=== PATIENT | female | born 1990 | race Caucasian/White ===

== ENCOUNTER → 2017-08-15 19:12 | Outpatient (CLI) | payer OTHER, SELFPAY ==
[2017-08-15 21:16] LABS: Group B Strep DNA By PCR Negative (Negative); Internal Control PASS; Probe Check PASS; Specimen Processing Control PASS
== END ==
PROVIDERS: Obstetrics & Gynecology; Visit Provider Obstetrics & Gynecology
DX: Z36.85 Encounter for antenatal screening for Streptococcus B (principal)
CPT/HCPCS: 87081; 87653

== ENCOUNTER 2017-09-12 14:00 | Inpatient (IN) | payer SELFPAY ==
[2017-09-12] MEDS: Lactated Ringers 1,000 ML 50 ML IV (15:00)
[2017-09-12 15:15] LABS: Hematocrit 35.8 % (37-47); Hemoglobin 11.6 g/dl (12.0-15.0); Mean Corp Hgb Conc 32.4 g/gl (32-36); Mean Corpuscular Hgb 31.8 pg (27.0-32.0); Mean Corpuscular Volume 98.1 fL (81-99); Mean Platelet Vol. 11.5 fl (6.2-12.0); Platelet Count 172 K/mm3 (150-450); RBC Distribution Width CV 13.8 % (11.6-14.6); RBC Distribution Width SD 47.1 fl (35.1-43.9); Red Blood Count 3.65 M/mm3 (4.2-5.4); White Blood Count 14.5 K/mm3 (4.4-11.0)
[2017-09-12 15:29] LABS: Scan Indicated on CBC? Y/N NO
[2017-09-12] MEDS: Oxytocin 30 units/NS 500 ml 30 UNITS/500 ML IV.SOLN 334 UNITS IV (15:36)
[2017-09-12 15:45] VITALS: BMI 27.2
[2017-09-12] MEDS: Oxytocin 30 units/NS 500 ml 30 UNITS/500 ML IV.SOLN 167 UNITS IV (16:06)
[2017-09-12] MEDS: Methylergonovine 0.2 MG/ML Ampul IM (16:20)
[2017-09-12] MEDS: Ibuprofen 600 MG Tablet PO (17:37)
--- NOTE | 2017-09-12 18:00 | PCM.OB.VAG ---
Vaginal Delivery Maternal Presentation: Active Labor Amniotic Membrane Rupture Type: Artificial Amniotic Fluid Description: Clear Final RAYMUNDO: 09/10/17 Final RAYMUNDO Source: US <20 weeks Gestational age: 40 Weeks and 2 Days Date of Procedure: 09/12/17 Pre-Operative Diagnosis: IUP Post-Operative Diagnosis: IUP Surgery/ Procedure Performed: Spontaneous Vaginal Delivery Type of Anesthesia: None, Local with 1% lidocaine Description of Procedure: Spontaneous vaginal delivery of a viable male infant with Apgars of 8/9 in occiput anterior presentation and clear amniotic fluid and normal three-vessel placenta. Cord around the neck ?1 loose. No episiotomy. First-degree midline laceration repaired in layers with 3-0 Rapide suture. Sponge counts okay. Delivery physician: Emeterio Osman MD. Presentation: Vertex Placental Delivery Description: Spontaneous Placenta Disposition: [facility] Cord Vessel Description: 3 Vessels Cord Entanglement: Around neck x 1, loose Estimated Blood Loss: 250 cc Infant A gender: Male (1 minute): 8 (5 minute): 9 Episiotomy Description: None Laceration: Midline, Perineal Extension/lac, 1st degree Medications given after delivery: IV Pitocin, IM Methergin Complications: None
--- NOTE | 2017-09-12 18:03 | PCM.DCVAG ---
Discharge Diet: No Restrictions Discharge Activity: May Shower, May Take a Tub Bath May resume sexual activity in: 4-6 weeks Additional Activity Instructions:: Nothing in the vagina for 4-6 weeks. You may return to work/school in 6 weeks. Call your doctor if you observe: Fever of 101 or Higher, Inability to urinate, Inability to have a bowel movement, Using more than one pad per hour Additional Instructions: If you experience any of the following, contact your healthcare provider. Bleeding that soaks a pad every hour for 2 hours Unrelieved incision or abdominal pain Swelling, redness, discharge or bleeding from your incision or episiotomy site Your incision begins to separate Problems urinating (including inability to urinate or burning while urinating). Visual changes Severe headache Flu-like symptoms Pain or redness in one of both of your breasts Pain, warmth, tenderness or swelling in your legs, especially the calf area Frequent nausea and vomiting Symptoms of depression or anxiety If you experience any of the following, call 911 or go to the nearest Emergency Room. Chest pain Problems breathing Seizure activity Partial or complete paralysis of a body part, slurred speech, weakness or drooping of the face, or a sudden inability to walk or hold your balance Allergies/Adverse Reactions: Allergies No Known Allergies Allergy (Verified 09/12/17 15:05) Medications to take at Discharge Vit No.130/Iron/FA [ Vitamins] 1 each PO DAILY 09/12/17 Please Follow Up With: Delmy Rocha MD - [phone] When: Call to make an appointment with your doctor in 6 weeks.
--- NOTE | 2017-09-12 18:05 | DCINST_ITS ---
Discharge Diet: No Restrictions Discharge Activity: May Shower, May Take a Tub Bath May resume sexual activity in: 4-6 weeks Additional Activity Instructions:: Nothing in the vagina for 4-6 weeks. You may return to work/school in 6 weeks. Call your doctor if you observe: Fever of 101 or Higher, Inability to urinate, Inability to have a bowel movement, Using more than one pad per hour Additional Instructions: If you experience any of the following, contact your healthcare provider. * Bleeding that soaks a pad every hour for 2 hours * Unrelieved incision or abdominal pain * Swelling, redness, discharge or bleeding from your incision or episiotomy site * Your incision begins to separate * Problems urinating (including inability to urinate or burning while urinating) . * Visual changes * Severe headache * Flu-like symptoms * Pain or redness in one of both of your breasts * Pain, warmth, tenderness or swelling in your legs, especially the calf area * Frequent nausea and vomiting * Symptoms of depression or anxiety If you experience any of the following, call 911 or go to the nearest Emergency Room. * Chest pain * Problems breathing * Seizure activity * Partial or complete paralysis of a body part, slurred speech, weakness or drooping of the face, or a sudden inability to walk or hold your balance Allergies/Adverse Reactions: Allergies No Known Allergies Allergy (Verified 09/12/17 15:05) Medications to take at Discharge Vit No.130/Iron/FA [ Vitamins] 1 each PO DAILY 09/12/17 Please Follow Up With: Delmy Rocha MD - [phone] When: Call to make an appointment with your doctor in 6 weeks.
[2017-09-12] MEDS: miSOPROStol 200 MCG Tablet PO (18:15)
[2017-09-12] MEDS: 0.9% Saline Lock 10 ML Syringe IV (19:06)
[2017-09-12 19:45] VITALS: BP 109/60; PULSE 88; RESP 16; TEMP 37.1; O2SAT 96
[2017-09-12 23:30] VITALS: BP 113/68; PULSE 88; RESP 18; TEMP 36.2; O2SAT 96
[2017-09-13] MEDS: Ibuprofen 600 MG Tablet PO ×3 (01:23→21:36)
[2017-09-13 04:22] VITALS: BP 105/59; PULSE 87; RESP 16; TEMP 35.9; O2SAT 97
[2017-09-13] MEDS: 0.9% Saline Lock 10 ML Syringe IV (04:22)
[2017-09-13] MEDS: oxyCODONE 5 MG Tablet PO (06:07)
[2017-09-13 08:50] VITALS: BP 109/59; PULSE 93; RESP 16; TEMP 36.2; O2SAT 96
--- NOTE | 2017-09-13 08:51 | PCM.PN.OB ---
Subjective: Patient without complaints. Breast-feeding going well. Wants to go home today. - Physical Exam Vital Signs AF, VSS Temp Pulse Resp BP Pulse Ox 96.7 F L 87 16 105/59 L 97 09/13/17 04:22 09/13/17 04:22 09/13/17 04:22 09/13/17 04:22 09/13/17 04:22 Oxygen Delivery Method Room Air Weight: 179 lb 3.773 oz Body Mass Index (BMI) 27.2 Intake and Output for Last 24 Hours 09/11/17 09/12/17 09/13/17 23:59 23:59 23:59 Output Total 1000 / 1000 Balance -1000 / -1000 Laboratory Tests Past 24 Hrs 09/12/17 09/12/17 15:05 18:55 WBC 14.5 H RBC 3.65 L Hgb 11.6 L Hct 35.8 L MCV 98.1 MCH 31.8 MCHC 32.4 RDW 13.8 RDW Differential 47.1 H Plt Count 172 MPV 11.5 Blood Type O NEGATIVE Antibody Screen NEGATIVE Assessment/Plan Doing well. Will release to home with routine instructions.
[2017-09-13 12:00] VITALS: BP 101/62; PULSE 74; RESP 16; TEMP 36.2; O2SAT 98
[2017-09-13 16:00] VITALS: BP 110/62; PULSE 83; RESP 16; TEMP 36.6; O2SAT 97
[2017-09-13 19:40] VITALS: BP 113/63; PULSE 82; RESP 16; TEMP 36.4; O2SAT 97
[2017-09-13] MEDS: Senna/Docusate Sodium 1 Tablet PO (21:44)
[2017-09-14 03:10] VITALS: BP 99/50; PULSE 75; RESP 16; TEMP 36.4; O2SAT 98
[2017-09-14] MEDS: Senna/Docusate Sodium 1 Tablet PO (08:26)
[2017-09-14] MEDS: Ibuprofen 600 MG Tablet PO (08:27)
[2017-09-14 08:30] VITALS: BP 108/52; PULSE 75; RESP 16; TEMP 36.6
--- NOTE | 2017-09-14 09:18 | PCM.PN.OB ---
Subjective: Patient without complaints. Minimal vaginal bleeding. Decided to stay yesterday but now ready to go home. - Physical Exam Vital Signs Temp Pulse Resp BP Pulse Ox 97.9 F 75 16 108/52 L 98 09/14/17 08:30 09/14/17 08:30 09/14/17 08:30 09/14/17 08:30 09/14/17 03:10 Oxygen Delivery Method Room Air Weight: 179 lb 3.773 oz Body Mass Index (BMI) 27.2 Intake and Output for Last 24 Hours 09/12/17 09/13/17 09/14/17 23:59 23:59 23:59 Output Total 1000 / 1000 Balance -1000 / -1000 Assessment/Plan Doing well. Will release to home with routine instructions.
== END 2017-09-14 13:20 | disposition home or self-care (01) | DRG 775 ==
PROVIDERS: Admitting Provider Obstetrics & Gynecology; Family Provider Family Medicine; PCP Family Medicine; Visit Provider Obstetrics & Gynecology
DX: O48.0 Post-term pregnancy (principal); O69.81X0 Labor and delivery complicated by cord around neck, without compression, not applicable or unspecified; Z3A.40 40 weeks gestation of pregnancy; O70.0 First degree perineal laceration during delivery; Z37.0 Single live birth
CPT/HCPCS: 59050; 85027; 86850; 86900; 93460; 99218; J7120; A4216; G0378

== ENCOUNTER → 2019-12-18 | Outpatient (CLI) | payer OTHER, SELFPAY ==
[2019-12-19 15:39] LABS: Chlamydia Trachomatis by PCR Negative (Negative); Neisserai gonorrhoeae by PCR Negative (Negative); Probe Check PASS; Sample Adequacy Control PASS; Specimen Processing Control PASS
[2019-12-24 14:58] LABS: HPV Reflexed? NOT INDICATED
== END | disposition home or self-care (01) ==
LOC: LABSPEC 12-19 09:46
PROVIDERS: PCP Family Medicine; Visit Provider Obstetrics & Gynecology
DX: Z12.4 Encounter for screening for malignant neoplasm of cervix (principal); Z11.3 Encounter for screening for infections with a predominantly sexual mode of transmission
CPT/HCPCS: 87491; 87591; 88175; G0145

== ENCOUNTER → 2020-04-10 09:43 | Outpatient (CLI) | payer OTHER, SELFPAY ==
[2020-04-10 11:15] LABS: Hematocrit 39.3 % (37-47); Hemoglobin 12.7 g/dL (12.0-15.0); Mean Corp Hgb Conc 32.3 g/dL (32-36); Mean Platelet Vol. 11.2 fl (6.2-12.0); Platelet Count 159 K/mm3 (150-450); RBC Distribution Width SD 47.1 fl (35.1-43.9); Red Blood Count 3.97 M/mm3 (4.2-5.4); White Blood Count 10.2 K/mm3 (4.4-11.0)
[2020-04-10 11:58] LABS: Glucose Challenge Gest 1H 50g 70 mg/dL (70-140)
== END ==
PROVIDERS: PCP Family Medicine; Visit Provider Obstetrics & Gynecology
DX: Z34.83 Encounter for supervision of other normal pregnancy, third trimester (principal)
CPT/HCPCS: 36415; 82950; 85027; 86850

== ENCOUNTER → 2020-06-03 09:50 | Outpatient (CLI) | payer OTHER, SELFPAY | PROVIDERS: PCP Family Medicine; Visit Provider Obstetrics & Gynecology | DX: Z36.85 Encounter for antenatal screening for Streptococcus B (principal) | CPT/HCPCS: 87081 ==

== ENCOUNTER 2020-07-07 00:47 | Inpatient (IN) | payer SELFPAY, OTHER ==
[2020-07-07] VITALS (19 sets, daily range): BP systolic 102–131; BP diastolic 52–86; PULSE 77–109; RESP 14–16; TEMP 36–36.6; O2SAT 97; BMI 29.2
[2020-07-07] MEDS: Lactated Ringers 1,000 ML 200 ML IV (01:01)
[2020-07-07 01:19] LABS: Absolute Lymphocyte Count 1.53 X10^3/uL (0.83-4.51); Absolute Neutrophil Count 6.9 X10^3/uL (2.0-7.7); Basophil# 0.03 X10^3/uL; Basophil% 0.3 % (0-1); Eosinophil# 0.11 X10^3/uL; Eosinophils% 1.2 % (0-5); Hematocrit 37.6 % (37-47); Hemoglobin 12.3 g/dL (12.0-15.0); Lymphocyte # 1.53 X10^3/ul (4.0); Lymphocyte % 16.3 % (19-41); Mean Corp Hgb Conc 32.7 g/dL (32-36); Mean Corpuscular Hgb 31.1 pg (27.0-32.0); Mean Corpuscular Volume 95.2 fL (81-99); Mean Platelet Vol. 12.1 fl (6.2-12.0); Monocyte# 0.77 X10^3/uL; Monocyte% 8.2 % (0-10); NRBC Flagged by Analyzer 0 % (0-5); Neutrophil # 6.87 X10^3/uL (2.7-7.7); Neutrophil % 73.5 % (47-70); Platelet Count 175 K/mm3 (150-450); RBC Distribution Width CV 13.6 % (11.6-14.6); RBC Distribution Width SD 46.9 fl (35.1-43.9); Red Blood Count 3.95 M/mm3 (4.2-5.4); White Blood Count 9.4 K/mm3 (4.4-11.0)
[2020-07-07] MEDS: Oxytocin 30 units/NS 500 ml 30 UNITS/500 ML IV.SOLN 334 UNITS IV (03:04)
--- NOTE | 2020-07-07 03:11 | PCM.HP.BLA ---
History and Physical Date of Admission: 07/07/20 OG ANTEPARTUM RECORD - HISTORY AND PHYSICAL (07/07/2020) Name: SHAUNA LOBATO History of This : This is a 30-year-old Ab2 who presents in active labor at 41 weeks gestation. care has otherwise been uneventful. OB Physician: SID 's Physician: Raphael Cornejo [facility] ...................................................................... : 1990 Age: 30 Address: [address] [place] [address] Phone: [phone] Insurance Carrier: [facility] [id number] Emergency Contact: TAWANA LOBATO [phone] ...................................................................... Final RAYMUNDO: 06/30/20 By Ultrasound: 11 weeks 2 days PARITY: (G-Total Pregnancies P-Fullterm,Premature,Induced AB,Spont AB, Ectopics, Multiple,Living) RAYMUNDO CONFIRMATION: By LMP: 09/24/19 By First Ultrasound Exam: 06/27/20 Final RAYMUNDO: 06/30/20 OB PROBLEM LIST: 's sister has PKU. NOT on Genetics Screening form. EPDS 6. Declines AFP and CF. O negative RhoGAM at 28-29 wks ALLERGIES: No Known Drug Allergies MEDICATIONS: Colace 100 mg capsule One to two pill by mouth once a day 28 mg iron-800 mcg tablet daily SOCIAL HISTORY: Smoking - Never Alcohol Use - occasionally not while and wine not while Diet - balanced Diet, caffeine < 2 drinks per day and Water tries for 2-3 40 oz daily. Lifestyle - Exercise - active work, walking and tries to walk 30 min most days. 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 Drug Use - denies use of street drugs Sexual Activity - Residence - owns a home and lives w husb and daughter Place of - [place] Spouse-Sig Other Name - Tawana Spouse-Sig Other Occupation - Gang Hemstitching Machine Operator Spouse-Sig Other Phone No - [phone] Children Name(s) - Antoni Hammer PRIOR DELIVERY HISTORY DEL DATE GEST LAB WT LB WT OZ TYPE ANES LABOR TX November 16 10 0 0 0 Vag None No May 16 9 0 0 0 Vag None No Sep 18 40 12 7 9 Vag Local No November 14 40 12 7 8 Vag None No ANTEPARTUM FLOW CHART VISIT GE RTC FU F F SC U U DATE WK MD WKS HT PN HR M SS BP ED WT SC GL D EF ST __ ____ ___ __ __ ___ __ __ __ ___ __ __ __ ___ __ 29 Jun JMW 1 37 + + 116/66 sl 192 1+ - 3 75 -2 Jun JMW 1 38 V + + 132/86 sl 192 tr - S 15 Jun JM 1 38 V + + 122/68 sl 191 tr - 2 50 -3 08 Jun JMW 36 27 + + 118/70 sl 190 tr - 2 50 P 01 Jun JMW 1 36 V + + 116/64 sl 189 tr - ft 50 -2 May JMW 3 32 + + 104/70 sl 185 - - Apr 30 JMW 3 28 + + 110/70 sl 183 tr - 08 Mar 27 JMW 4 24 + + 102/68 tr 170 - - Feb 20 JMW 4 20 + + 116/72 sl 166 - - Jan 16 JMW 4 16 + O 112/60 0 155 - - ANTEPARTUM NOTE(S): Jul 01 2020: Doing Well Jun 24 2020: Ctxs-occas, Good FM Jun 17 2020: Ctxs-occas and Doing Well Jun 10 2020: Questionable Pelvic Gridle pain,Good FM Jun 03 2020: Doing Well, GBS today, LARC declined May 06 2020: doing well, COVID x 3 wks ago Apr 10 2020: feeling well. Glucola drawn and rhogam given. AM Mar 11 2020: Glucola/Instructions Given,Good FM Feb 12 2020: Sono Today,Occ Cxts(encouraged to increase water) Jan 15 2020: Declines AFP COMPREHENSIVE ANTEPARTUM NOTE(S): Jun 17 2020: 38wk, no complaints. Desires expectant management. Possible membrane sweep next visit. Jun 12 2020: H taken to OB. tkg Jan 15 2020: Shauna declines genetics testing. She has not felt FM yet. Episode of dizziness this morning, wondering if vertigo, which she has had in the past. To watch -- to follow w/PCP if needed. Reviewed increase in blood volume in -- avoid sudden position changes, prolonged standing, maintain hydration. NOB educational materials given. 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 The first baby was tachypneic and transferred to [facility] for a few days. was difficult so she pumped. Their son nursed well for ten months. Her ,Tawana, is a excavation laborer. They have a 6 yo daughter and a 2 yo son. They are pleased about the . Shauna has NKA to drugs, food, latex or the environment. Her diet is balanced w < 2 servings of caffeine daily and a 40 oz water bottle filled at least twice daily and three if she can. She is a lifetime non smoker. When not pg she occ has wine. She denies street drug use. Genetics Screening form completed prior noting an uncle with MR, developmental disability. During this call she mentioned her 's sister has PKU. They decline AFP and CF testing. EPDS score 6. Warning signs in pg reviewed as well as wearing seatbelt ALWAYS despite location in vehicle and low on her abdomen, reaching the office after hours, OTC meds ok to take w understanding voiced. They have an outdoor cat only. Shauna had chickenpox. US and labs done prior. She has a copy of What to Expect. Enc to call w any concerns or questions they may have. Visit took 30 minutes. Alhaji VALDEZ. NEW Dec 18 2019: Shauna presents here today for Missed Menses appointment. 29 y.o. G 5 P 2 non-smoker with regular menses and LMP of 09-24-19 lasting her average of 5 days. UPT is positive today in our Office. Denies spotting/bleeding thus far in . Reports periodic nausea and tender breasts. Presents at 12 weeks today and will plan to have labs drawn at this visit. History of normal pap screening in 2017. Medication and Allergy lists up-dated. Currently taking an OTC Vitamin and Colace stool softener for constipation. Genetic screening form filled out, [place] Depression Scale form filled out, in preparation for Telehealth NOB visit in near future. ALEJO Dec 17 2020: ok REVIEW OF SYSTEMS: GENERAL - Denies fever, or chills SKIN - Denies rash, new skin lesions, or change in moles EYES - Denies blurred vision, or change in visual acuity EARS - Denies ear pain, or difficulty hearing NOSE - Denies nasal congestion, discharge, or bleeding MOUTH - Denies sore throat, or difficulty swallowing NECK - Denies pain or swelling RESPIRATORY - Denies shortness of breath, cough, wheezing CARDIOVASCULAR - Denies palpitations, chest pain, orthopnea, PND, peripheral edema, syncope or claudication GASTROINTESTINAL - Denies nausea, vomiting, diarrhea, constipation, Denies abdominal pain, melena and or bright red blood GENITOURINARY - Denies dysuria, frequency of urination, urgency, or hesitancy MUSCULOSKELETAL - Denies joint or muscle pain, or back pain NEUROLOGICAL - Denies localized numbness, weakness, or tingling PSYCHIATRIC - Denies depression, anxiety, substance abuse or suicide attempts ENDOCRINE - Denies heat or cold intolerance, weight loss or gain, increasing thirst HEMATO-IMMUNOLOGIC - Denies easy bruising, bleeding, oral ulcerations or recurrent infections GENETICS SCREENING: Age 35+ years: No Thalassemia: No Neural Tube Defect: No Down Syndrome: No DEBRA-SACHS: No Sickle Cell Disease: No Hemophilia: No Musc. Dystrophy: No Cystic Fibrosis: No-declines screening Fannin Chorea: No Mental Retardation: Yes Fragile X: No Other genetic: No Other defects: No SABs/still births: Yes x2 Drugs since LMP: Yes Comments: Colace INFECTION HISTORY: High risk AIDS: No High risk Hepatitis: No Exposed to TB: No Exposed to Herpes: No Rash/viral illness since LMP: No History of STD: No MENSTRUAL HISTORY: *Menses Amount/Duration: 5 daysMenses Regularity: RegularFrequency: monthlyMenarche (Age Onset): 15* PAST SUMMARY: PARITY: 1. Total Pregnancies............ 5 2. Full Term Pregnancies........ 2 3. Premature.................... 0 4. Abortions - Induced.......... 0 5. Abortions - Spontaneous...... 2 6. Ectopics..................... 0 7. Multiple Births.............. 0 8. Living Children.............. 2 PAST #1: Date of :.................. 11/20/13 Gestation Weeks:................ 40 Length of labor(hours):......... 12 Sex:............................ F Weight-lbs:............... 7 Weight-oz:................ 8 Type of Delivery:............... Vag Type of Anesthesia:............. None Place of Delivery:.............. [facility] Treatment of Labor?:.... No Comment: BABY TRANS [facility] [place] PAST #2: Date of :.................. 11/02/15 Gestation Weeks:................ 10 Length of labor(hours):......... 0 Sex:............................ UNKNOWN Weight-lbs:............... 0 Weight-oz:................ 0 Type of Delivery:............... Vag Type of Anesthesia:............. None Place of Delivery:.............. [facility] Treatment of Labor?:.... No Comment: SAB PAST #3: Date of :.................. 05/04/16 Gestation Weeks:................ 9 Length of labor(hours):......... 0 Sex:............................ UNKNOWN Weight-lbs:............... 0 Weight-oz:................ 0 Type of Delivery:............... Vag Type of Anesthesia:............. None Place of Delivery:.............. [place] Treatment of Labor?:.... No Comment: SAB PAST #4: Date of :.................. 09/12/17 Gestation Weeks:................ 40 Length of labor(hours):......... 12 Sex:............................ M Weight-lbs:............... 7 Weight-oz:................ 9 Type of Delivery:............... Vag Type of Anesthesia:............. Local Place of Delivery:.............. [facility] Treatment of Labor?:.... No Comment: NO PHYSICAL EXAMINATION General Appearence: 30 yo female in no acute distress Vital Signs: AF, VSS Heart: RRR without rubs or gallops Lungs: CTA x 2 Breasts: deferred Abdomen: gravid Pelvis: Cervix: 6/85 Presentation: cephalic Station: -2 Fetus: Size: AGA Movement: present Heart: present Labs for : SHAUNA MAYSETLER since 10/04/2019 ORDER DATEIN DESCRIPTION VALUE UNITS RANGE A+ COMMENT TYPE AND SCREEN 07/07/20 Reason for Type AND Screen/Red Cells: Labor [facility]~[address], [address]~ BLOOD TYPE GEL O NEGATIVE N ANTIBODY SCREEN NEGATIVE N CBC W/DIFF, AUTOMATED 07/07/20 NOTE Original Ordering Provider: Yanet Osman WBC 9.4 K/mm3 4.4-11.0 RBC 3.95 M/mm3 4.2-5.4 L HGB 12.3 g/dL 12.0-15.0 HCT 37.6 % 37-47 MCV 95.2 fL 81-99 MCH 31.1 pg 27.0-32.0 MCHC 32.7 g/dL 32-36 RDW CV 13.6 % 11.6-14.6 RDW SD 46.9 fl 35.1-43.9 H PLT 175 K/mm3 150-450 MPV 12.1 fl 6.2-12.0 H NEUT% 73.5 % 47-70 H LY% 16.3 % 19-41 L MONO% 8.2 % 0-10 EO% 1.2 % 0-5 BASO% 0.3 % 0-1 IM GRAN % 0.500 % 0.0-0.9 IG% - Immature Granulocytes (promyelocytes, myelocytes and metamyelocytes) > 1% indicates that a LEFT SHIFT is Present. ABSOLUTE NEUT 6.9 X10 3/uL 2.0-7.7 ABSOLUTE LYMPH 1.53 X10 3/uL 0.83-4.51 NRBC, FLAGGED 0 % 0-5 CULTURE, GROUP B STREPTOCOCCUS 06/03/20 NOTE Original Ordering Provider: Yanet Osman KELLEY Culture Group B Beta Streptococcus is not isolated. Reviewed by YANET ANTIBODY SCREEN 04/10/20 [facility]~[address] [place], [address]~ ANTIBODY SCREEN NEGATIVE N Reviewed by YANET GLUCOSE CHALLENGE GEST 1H 50G 04/10/20 NOTE Original Ordering Provider: Yanet Osman GLU GEST 50G 1H 70 mg/dL 70-140 Reviewed by YANET CBC-COMPLETE BLOOD CNT NO DIFF 04/10/20 NOTE Original Ordering Provider: Yanet Osman WBC 10.2 K/mm3 4.4-11.0 RBC 3.97 M/mm3 4.2-5.4 L HGB 12.7 g/dL 12.0-15.0 HCT 39.3 % 37-47 MCV 99.0 fL 81-99 MCH 32.0 pg 27.0-32.0 MCHC 32.3 g/dL 32-36 RDW CV 13.0 % 11.6-14.6 RDW SD 47.1 fl 35.1-43.9 H PLT 159 K/mm3 150-450 MPV 11.2 fl 6.2-12.0 Reviewed by YANET HEPATITIS C AB IA W/CONFIRM [CCL] 12/18/19 NOTE Original Ordering Provider: PASCALE GUILLEN HEPATITIS C AB IA Negative NEGAT [facility] [address] [place] [address] Saravanan Saenz III, M.D. [id number] Reviewed by YANET ANDERSON 3 [CCL] 12/18/19 NOTE Original Ordering Provider: PASCALE GUILLEN RPR Non Reactive NR HEPATITIS B SURF. AG Negative NEGAT RUBELLA IGG AB, QUAL Positive NEGAT A Sample is considered positive for IgG antibodies to rubella virus. A positive result indicates previous exposure to Rubella virus or vaccination. RUBELLA IGG AB 1.68 Indexlue Index values are interpreted as follows: Negative specimens <0.90 Equivocol specimens 0.90 to 0.99 Positive specimens >0.99 The magnitude of the measured result is not indicative of the amount of antibody present. [facility] [address] [place] [address] Saravanan Saenz III, M.D. [id number] Reviewed by YANET Panel-Thyroid 12/18/19 Thyroid Stimulating Hormone 1.91 micro IU/ml 0.4-5.5 Reviewed by YANET Initial OB Labs 12/18/19 Blood Type O Rh Type negative Antibody Screen negative Negative Hemoglobin Initial OB 14 Hematocrit Initial OB 43.3 PLT 205 Rubella immune Immune VDRL non reactive Non Reactive HBsAg negative Negative Urine Protein negative Negative Urine Glucose normal Negative Reviewed by YANET PAP IG W/REFLEX HR HPV APTIMA 12/18/19 NOTE Original Ordering Provider: Yanet Osman DIAGN . NEGATIVE FOR INTRAEPITHELIAL LESION OR MALIGNANCY. ADEQ . Satisfactory for evaluation. Endocervical and/or squamous metaplastic cells (endocervical component) are present. PERFORM . Rene Gates Lace Paper Machine Operator (ASCP) TEST METHOD . This liquid based ThinPrep(R) pap test was screened with the use of an image guided system. COMM . . PAPSMR . The Pap smear is a screening test designed to aid in the detection of premalignant and malignant conditions of the uterine cervix. It is not a diagnostic procedure and should not be used as the sole means of detecting cervical cancer. Both false-positive and false-negative reports do occur. HPV RFLX . The HPV DNA reflex criteria were not met with this specimen result therefore, no HPV testing was performed. Performed at: - [address], [place] [id number] Web Software Engineer: Tory Buck MD, Phone: [phone] Reviewed by YANET [facility] BY PCR 12/18/19 NOTE Original Ordering Provider: Yanet [facility] PCR Negative Negative NG BY PCR Negative Negative Reviewed by YANET Impression /Plan: 41-week intrauterine in active labor. Preparations in progress for delivery.
--- NOTE | 2020-07-07 03:15 | PCM.OPRPT ---
Vaginal Delivery Maternal Presentation: Active Labor Amniotic Membrane Rupture Type: Artificial Amniotic Fluid Description: Clear Final RAYMUNDO: 06/30/20 Final RAYMUNDO Source: US <20 weeks Gestational age: 41 Weeks and 0 Days Date of Procedure: 07/07/20 Pre-Operative Diagnosis: IUP, Postdatism Post-Operative Diagnosis: IUP, Postdatism Surgery/ Procedure Performed: Spontaneous Vaginal Delivery Type of Anesthesia: Local with 1% lidocaine Description of Procedure: Spontaneous vaginal delivery of a viable male infant with Apgars of 8/9 from an occiput anterior presentation with clear amniotic fluid and normal three-vessel placenta. No episiotomy. Second-degree midline laceration repaired with 3-0 Rapide suture under local anesthesia. Sponges okay. Delivery physician: Emeterio Osman MD. Presentation: Vertex Placental Delivery Description: Spontaneous Placenta Disposition: [facility] Cord Vessel Description: 3 Vessels Cord Entanglement: None Estimated Blood Loss: 250 cc A gender: Male (1 minute): 8 (5 minute): 9 Episiotomy Description: None Laceration: Midline, 2nd degree Medications given after delivery: IV Pitocin Complications: None
--- NOTE | 2020-07-07 03:17 | DCINST_ITS ---
Discharge Activity: May Shower, May Take a Tub Bath May resume sexual activity in: 4-6 weeks Additional Activity Instructions:: Nothing in the vagina for 4-6 weeks. You may return to work/school in 6 weeks. Call your doctor if you observe: Inability to urinate, Inability to have a bowel movement, Using more than one pad per hour Additional Instructions: If you experience any of the following, contact your healthcare provider. * Bleeding that soaks a pad every hour for 2 hours * Fever 100.4 or higher * Unrelieved incision or abdominal pain * Swelling, redness, discharge or bleeding from your incision or episiotomy site * Your incision begins to separate * Problems urinating (including inability to urinate or burning while urinating). * Visual changes * Severe headache * Flu-like symptoms * Pain or redness in one of both of your breasts * Pain, warmth, tenderness or swelling in your legs, especially the calf area * Frequent nausea and vomiting * Symptoms of depression or anxiety If you experience any of the following, call 911 or go to the nearest Emergency Room. * Chest pain * Problems breathing * Seizure activity * Partial or complete paralysis of a body part, slurred speech, weakness or drooping of the face, or a sudden inability to walk or hold your balance Allergies/Adverse Reactions: Allergies No Known Allergies Allergy (Verified 07/07/20 01:11) Medications to take at Discharge Vit No.130/Iron/Folic [ Vitamins] 1 each PO DAILY 09/12/17 Please Follow Up With: Emeterio Osman MD - [phone] When: Call to make an appointment with your doctor in 6 weeks. Primary Care Physician: Curt Bell MD [Primary Care Provider] - Test Results: Test results from this visit will be discussed in further detail at your follow- up appointment, if applicable.
--- NOTE | 2020-07-07 03:17 | PCM.DCVAG ---
Discharge Activity: May Shower, May Take a Tub Bath May resume sexual activity in: 4-6 weeks Additional Activity Instructions:: Nothing in the vagina for 4-6 weeks. You may return to work/school in 6 weeks. Call your doctor if you observe: Inability to urinate, Inability to have a bowel movement, Using more than one pad per hour Additional Instructions: If you experience any of the following, contact your healthcare provider. Bleeding that soaks a pad every hour for 2 hours Fever 100.4 or higher Unrelieved incision or abdominal pain Swelling, redness, discharge or bleeding from your incision or episiotomy site Your incision begins to separate Problems urinating (including inability to urinate or burning while urinating). Visual changes Severe headache Flu-like symptoms Pain or redness in one of both of your breasts Pain, warmth, tenderness or swelling in your legs, especially the calf area Frequent nausea and vomiting Symptoms of depression or anxiety If you experience any of the following, call 911 or go to the nearest Emergency Room. Chest pain Problems breathing Seizure activity Partial or complete paralysis of a body part, slurred speech, weakness or drooping of the face, or a sudden inability to walk or hold your balance Allergies/Adverse Reactions: Allergies No Known Allergies Allergy (Verified 07/07/20 01:11) Medications to take at Discharge Vit No.130/Iron/Folic [ Vitamins] 1 each PO DAILY 09/12/17 Please Follow Up With: Emeterio Osman MD - [phone] When: Call to make an appointment with your doctor in 6 weeks. Primary Care Physician: Curt Bell MD [Primary Care Provider] - Test Results: Test results from this visit will be discussed in further detail at your follow-up appointment, if applicable.
[2020-07-07] MEDS: Ibuprofen 600 MG Tablet PO ×3 (05:05→19:43)
[2020-07-07] MEDS: Acetaminophen 500 MG Tablet 1000 MG PO (23:22)
[2020-07-08 03:05] VITALS: BP 108/61; PULSE 74; RESP 16; TEMP 36.6
--- NOTE | 2020-07-08 06:58 | PCM.PN.OB ---
Subjective: Patient without complaints. Breast-feeding going well. Wants to go home today. - Physical Exam Vitals/I&O's: Vital Signs Temp Pulse Resp BP Pulse Ox 97.9 F 74 16 108/61 97 07/08/20 03:05 07/08/20 03:05 07/08/20 03:05 07/08/20 03:05 07/07/20 05:14 Oxygen Delivery Method Room Air Weight: 192 lb 3.2 oz Body Mass Index (BMI) 29.2 Intake and Output for Last 24 Hours 07/06/20 07/07/20 07/08/20 23:59 23:59 23:59 Intake Total 856.67 / 856.67 Output Total 500 / 500 Balance 356.67 / 356.67 Current Medications Acetaminophen (Acetaminophen 500 Mg Tablet) 1,000 mg PO Q8H PRN PRN PRN Reason: Pain Score 1-3 Last Admin: 07/07/20 23:22 Dose: 1,000 mg Documented by: Bisacodyl (Bisacodyl 10 Mg Suppository) 10 mg RECTAL UD PRN PRN Reason: If no BM Dibucaine (Dibucaine 30 Gm Tube) 1 applic TOPICAL TID PRN PRN; Protocol PRN Reason: Discomfort Hydrocortisone (Hydrocortisone 2.5% Crm) 1 applic TOPICAL TID PRN PRN; Protocol PRN Reason: Discomfort Ibuprofen (Ibuprofen 600 Mg Tablet) 600 mg PO Q6H PRN PRN PRN Reason: Pain Score 1-3 Last Admin: 07/07/20 19:43 Dose: 600 mg Documented by: Methylergonovine Maleate (Methylergonovine 0.2 Mg/Ml Ampul) 0.2 mg IM X1 PRN PRN Reason: Excess bleeding/uterine atony Ondansetron HCl (Ondansetron 4 Mg/2 Ml Vial) 4 mg IV Q4H PRN PRN PRN Reason: Nausea Oxycodone HCl (Oxycodone 5 Mg Tablet) 5 - 10 mg PO Q4H PRN PRN PRN Reason: Pain Score 4-10 Senna/Docusate Sodium (Senna/Docusate Sodium 1 Tablet) 1 - 2 tablet PO DAILY PRN PRN PRN Reason: Constipation Simethicone (Simethicone 80 Mg Tablet) 80 mg PO PCHS PRN PRN Reason: Indigestion/Stomach pain Sodium Chloride (0.9% Saline Lock 10 Ml Syringe) 5 - 15 ml IV UD PRN PRN Reason: SALINE FLUSH Zolpidem Tartrate (Zolpidem Tartrate 5 Mg Tablet) 5 mg PO QHS PRN PRN PRN Reason: Insomnia Medical Necessity - Tobacco Use Smoking Status: Never smoker Assessment/Plan Doing well day #1 status post routine spontaneous vaginal delivery. Will discharge to home with routine instructions.
[2020-07-08] MEDS: Ibuprofen 600 MG Tablet PO (07:48)
[2020-07-08] MEDS: Senna/Docusate Sodium 1 Tablet PO (07:48)
[2020-07-08 08:04] VITALS: BP 103/66; PULSE 69; RESP 20; TEMP 36.3
[2020-07-08] MEDS: Dibucaine 30 GM Tube 1 APPLIC TOPICAL (08:08)
== END 2020-07-08 10:40 | disposition home or self-care (01) | DRG 807 ==
LOC: WPOUT 00:48 → WP 00:48 → WPOUT 01:05 → WP 01:05
PROVIDERS: Admitting Provider Obstetrics & Gynecology; PCP Family Medicine; Referring Provider Obstetrics & Gynecology; Visit Provider Obstetrics & Gynecology
DX: O48.0 Post-term pregnancy (principal); Z37.0 Single live birth; Z3A.41 41 weeks gestation of pregnancy; O70.1 Second degree perineal laceration during delivery
CPT/HCPCS: 59025; 59050; 85025; 86850; 86900; 86901; 99218; J7120; G0378